=== PATIENT | male | born 1960 | race Caucasian/White ===

== ENCOUNTER 2020-04-15 08:00 | Outpatient (CLI) | payer BC | END 2020-04-15 23:59 | disposition home or self-care (01) | LOC: LAB.WCP 08:00 | PROVIDERS: ATTEND Radiology Therapeutic Radiology | DX: C61 Malignant neoplasm of prostate (principal) | CPT/HCPCS: 36415; 84153 ==

== ENCOUNTER 2020-05-18 07:00 | Outpatient (CLI) | payer BC ==
[2020-05-18 12:30] LABS: C. PNEUMONIAE- RESP PCR PANEL NOT DETECTED
== END 2020-05-18 23:59 | disposition home or self-care (01) ==
LOC: COV 07:00
PROVIDERS: ATTEND Family Medicine
DX: U07.1 COVID-19 (principal)
CPT/HCPCS: 0202U

== ENCOUNTER 2020-12-09 08:11 | Outpatient (CLI) | payer BC ==
[2020-12-09 08:55] VITALS: BP 146/88
--- NOTE | 2020-12-09 08:55 | SLEEP CARE CONSULTATION ---
Information from patient questionnaire entered by Josephine Isaac. I have reviewed and concur with the information entered by Josephine Isaac. This document represents the service I personally performed and the decisions made by me, Kalie Foster ARNP. History of Present Illness Service Date and Time: 12/09/2020 0811 Reason for Visit: New patient Chief Complaint: reports: Insomnia, Unrefreshed sleep, Snoring, Observed pauses in breathing, Fatigue, Frequent awakenings at night, Other (my told me to do something about the snoring or else) Date of Onset: 6 years plus Usual bedtime: 10 pm - 12 am Time it takes to fall asleep: 30-60 minutes Snores at night: Yes Observed to quit breathing while asleep: Yes Sleeps alone due to snoring: Yes Number of times waking at night: 1-3 Reasons for waking at night: reports: Other (unknown reason) Toss, Turn, or Twitch while sleeping: No Recalls having dreams: Yes Usually gets out of bed at: [id number] Feels refreshed in the morning: No Morning headache: No Sleepy or fatigued during the day: Yes Ever fallen asleep while driving: Yes (no accidents; drowsy driving with long trips) Takes day naps: No Dreams during day naps: No Prior sleep studies: No Additional HPI information: I had the pleasure of seeing ROGELIO BUNN today regarding the possibility of him having a sleep disorder. His current complaints are fatigue, frequent night awakenings, insomnia, observed pauses in breathing, snoring and unrefreshed sleep. He states he snores a lot, his is a light sleeper and wakes her up. He has a history of throat cancer and prostate cancer in 2019. His tells him he stops breathing when sleeping. He is not waking up feeling rested and can lay in bed for a couple extra hours and still does not feel rested. He feels he is depressed. He has difficulty remembering people's names, addresses he has been to before and other things he should remember after taking Lupron for his cancer. He has some dry mouth issues due to reduced saliva issues since having throat cancer treatment. He wakes up often with a dry mouth. 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 Patient is and lives in [place]. Have you smoked in the past 12 months: No Alcohol use: Yes Alcohol amount and frequency: 1-3 drinks daily Caffeine use: Yes Caffeine amount and frequency: 1 cup daily Family History Family history of sleep disordered breathing: Yes Family Hx Sleep Apnea: Father: Snoring Allergies and Home Medications Drug allergies reviewed: Yes (NKDA) Home medication list reviewed: Yes Allergy and home medication list: Levothyroxine Liothyronine [place] 3 Turmeric B-50 Milk Thistle Ashwaganda Acetyl L-Carnitine B 3 Vitamin A DGL-Licorice Aloe Vera juice Vitamin D Review of Systems Weight gain over past 5 years: 15-20 Weight loss over past 5 years: 40(during cancer treatment) Cardiovascular: denies: high blood pressure Gastrointestinal: reports: heartburn, abdominal pain Urinary: reports: impotence Neurological: denies: headaches Psychiatric: reports: depression. denies: anxiety, mood disorder, claustrophobia Ear/Nose/Throat: reports: sinus problems, dry mouth/throat, tonsillectomy, wisdom teeth removed Endocrine: reports: thyroid disease, sluggishness Musculoskeletal: reports: joint pain, neck pain, back pain, muscle pain or cramping Immunologic: reports: rash Physical Exam Blood Pressure: 146/88 Cuff size: wrist Heart Rate: 86 O2 Saturation: 98 Height: 5 ft 9 in Weight: 204 lb Body Mass Index: 30.1 BMI Classification: Obese Neck circumference: 16.75 (inches) Mouth and throat: narrow oropharynx Soft palate: long Hard palate: normal Uvula visualization: 50% Mallampati Class II Tongue: enlarged in size with teeth arizmendi on lateral edges Tonsils: absent bilaterally Heart: regular rate and rhythm Lungs: clear bilaterally Impression and Plan 1. Suspected Obstructive Sleep Apnea-Hypopnea Syndrome, as suggested by a history of loud and irregular snoring, observed cessation of breath while asleep, frequent awakening during the night, unrefreshed sleep, cognitive impairment, and excessive daytime sleepiness. Narrow oropharynx and obesity are common predisposing factors for obstructive sleep apnea-hypopnea syndrome. I recommend proceeding to polysomnography to confirm the diagnosis and to assess severity. If the patient has significant sleep disordered breathing, a manual CPAP titration study will also be performed to find the optimal treatment pr essure. I informed the patient of what the sleep studies involve and after some discussion, obtained agreement to proceed. The pathophysiology of obstructive sleep apnea-hypopnea syndrome was discussed with the patient and health risks of cardiovascular and cerebrovascular disease if not treated. AAS brochure for obstructive sleep apnea-hypopnea syndrome given and reviewed. Risks of drowsy driving discussed in detail and patient advised to avoid long distance driving and to dust puller at the first sign of drowsiness. Patient agreed to plan. * Schedule polysomnography +- manual CPAP titration study and return in 1-2 weeks after the study to discuss result and initiate therapy. * Avoid long distance driving or driving when feeling sleepy. * Avoid alcohol, sedative and muscle relaxant around bedtime. * Attempt to lose weight. * Review instructions provided by trained office staff on how to prepare for the sleep study. * Return for follow-up after sleep study completed. Counseling Topics: Weight loss health impact Visit Type: In Office Time Spent with Patient (minutes): 34 Provider Statement: I spent 100% of the Face to Face Visit with the patient with greater than 50% spent counseling the patient and coordination of care.
== END 2020-12-09 08:12 | disposition home or self-care (01) ==
LOC: SC 08:11
PROVIDERS: ATTEND Nurse Practitioner Family
DX: G47.10 Hypersomnia, unspecified (principal); R06.83 Snoring; R41.89 Other symptoms and signs involving cognitive functions and awareness; R06.81 Apnea, not elsewhere classified; G47.8 Other sleep disorders; E66.9 Obesity, unspecified; Z68.30 Body mass index [BMI] 30.0-30.9, adult
CPT/HCPCS: 99203; 99212

== ENCOUNTER 2020-12-15 13:59 | Outpatient (CLI) | payer BC | END 2020-12-15 14:00 | disposition home or self-care (01) | LOC: SC 13:59 | PROVIDERS: ATTEND Nurse Practitioner Family | DX: G47.33 Obstructive sleep apnea (adult) (pediatric) (principal); E66.9 Obesity, unspecified; Z68.30 Body mass index [BMI] 30.0-30.9, adult | CPT/HCPCS: 95806 ==

== ENCOUNTER 2021-01-05 08:37 | Outpatient (CLI) | payer BC ==
--- NOTE | 2021-01-05 09:17 | SLEEP CARE CONSULTATION ---
Information from patient questionnaire entered by Lorna Guallpa. I have reviewed and concur with the information entered by Lorna Guallpa. This document represents the service I personally performed and the decisions made by , Kalie Fsoter ARNP. History of Present Illness Service Date and Time: 01/05/2021 0837 Initial [place] Sleepiness Scale score: 12 (in 2020) Current [place] Sleepiness Scale score: 9 Additional HPI information: ROGELIO BUNN returns for follow up and results of the recently performed home sleep study. I explained the pathophysiology behind obstructive sleep apnea. We then spent quite a bit of time discussing different treatment options. For mild obstructive sleep apnea, surgery and oral appliance are alternatives to nasal CPAP therapy but in moderate or severe cases, nasal CPAP is the most effective and reliable treatment. Because apnea is primarily in supine position, then positional management therapy could be effective. Methods discussed such as positioning with pillows, using a T-shirt with tennis balls in the back, and shown commercial products that have a pillow format on back to prevent supine sleep. I reviewed the impact of weight changes on sleep apnea and strongly recommended losing weight. Patient was cautioned about risks of drowsy driving until sleepiness symptoms resolve. Sleep Study - Results Type of Sleep Study: Home sleep study Prior sleep studies: Yes Year and Where: [facility] 12/15/2020 Polysomnography/Home Sleep Study results: Physician Impression: The quality of the study is good. The length of the study is adequate (> 240 minutes). Please also see the tabulated and graphic data. 1. Obstructive Sleep Apnea-Hypopnea (ICD-10 G47.33), moderate, with an AHI of 15.7/hr and deneen SaO2 of 78%. During the study, the patient had 92 apneas (92 obstructive, 0 central, 0 mixed) and 41 hypopneas. The longest episode lasted 81.0 seconds. The respiratory events occurred more frequently during supine sleep (supine AHI was 27.1 and non-supine, 6.59). 2. Hypoxemia (ICD-10 R09.02), moderate, with the lowest oxygen saturation of 78 % and 14.0 minutes with SaO2 under 90%. Baseline oxygen saturation was normal (Average oxygen saturation was 93%). Allergies and Home Medications Home medication list reviewed: Yes (no changes) Review of Systems Review of systems same as previous: Yes (no changes) Physical Exam Heart Rate: 87 O2 Saturation: 97 Height: 5 ft 9 in Weight: 208 lb Body Mass Index: 30.7 BMI Classification: Obese Impression and Plan 1. Obstructive Sleep Apnea-Hypopnea Syndrome, moderate, with lowest oxygen saturation of 78%. Obviously this is the cause of the patients symptoms of unrefreshed sleep, and excessive daytime sleepiness. Positive pressure therapy could benefit his overall health and reduce cardiovascular and cerebrovascular adverse events. After thorough discussion of options: including surgery, oral mandibular appliance with positional therapy or CPAP treatment, patient decided to take information and think about his options before making a decision. He will call us here at the office when he has decided what he is going to do for therapy. In the meantime, I advised him to sleep more on his side since he is more severe on his back using pillows for positioning and he voiced understanding. Patient supplied a copy of his sleep study as well as information on dentists in the area and DME options in the area. 2. Hypoxemia, moderate, with the lowest oxygen saturation of 78 % and 14.0 minutes with SaO2 under 90%. His baseline oxygen saturation was normal with an average oxygen saturation of 93%. * Patient to notify office of his decision on type of therapy. * Attempt to lose weight. * Avoid alcohol consumption near bedtime. * Avoid supine sleep. * The patient is again cautioned about driving until sleepiness completely resolves. * Return determined by type of HARISH therapy selected. Counseling Topics: Weight loss health impact Visit Type: In Office Time Spent with Patient (minutes): 27 Provider Statement: I spent 100% of the Face to Face Visit with the patient with greater than 50% spent counseling the patient and coordination of care.
== END 2021-01-05 08:38 | disposition home or self-care (01) ==
LOC: SC 08:37
PROVIDERS: ATTEND Nurse Practitioner Family
DX: G47.33 Obstructive sleep apnea (adult) (pediatric) (principal); E66.9 Obesity, unspecified; Z68.30 Body mass index [BMI] 30.0-30.9, adult
CPT/HCPCS: 99212; 99213

== ENCOUNTER 2021-03-09 08:07 | Outpatient (CLI) | payer BC ==
[2021-03-09] MEDS ORDERED: IOPAMIDOL-300 50 ML VIAL ONE (08:34)
[2021-03-09] MEDS ORDERED: IOVERSOL 320 50 ML VIAL ONE (08:34)
[2021-03-09 08:52] LABS: BASOPHILS % (AUTO) 0.5 %; EOSINOPHILS # (AUTO) 0.3 10^3/uL (0.0-0.7); EOSINOPHILS % (AUTO) 5.8 %; HGB - HEMOGLOBIN 13.8 g/dL (14.0-18.0); LYMPHOCYTES # (AUTO) 1.5 10^3/uL (1.5-3.5); LYMPHOCYTES % (AUTO) 26.4 %; MEAN CORPUSCULAR HEMOGLOBIN 32.9 pg (27.0-31.0); MEAN CORPUSCULAR HGB CONC 33.7 g/dL (32.0-36.0); MEAN CORPUSCULAR VOLUME 97.9 fL (80.0-94.0); MEAN PLATELET VOLUME 8.9 fL (7.4-11.4); MONOCYTES # (AUTO) 0.5 10^3/uL (0.0-1.0); MONOCYTES % (AUTO) 9.1 %; NEUTROPHILS # (AUTO) 3.2 10^3/uL (1.5-6.6); PLT - PLATELET COUNT 172 10^3/uL (130-450); RED BLOOD COUNT 4.19 10^6/uL (4.70-6.10); RED CELL DISTRIBUTION WIDTH 12.7 % (12.0-15.0); WHITE BLOOD COUNT 5.5 x10^3/uL (4.8-10.8)
[2021-03-09 09:00] LABS: CALCIUM 9.7 mg/dL (8.5-10.3); CREATININE 1.1 mg/dL (0.6-1.2); POTASSIUM 4.1 mmol/L (3.5-5.0)
[2021-03-09] MEDS ORDERED: IOPAMIDOL-300 50 ML VIAL IVP ONE (10:03)
[2021-03-09] MEDS ORDERED: IOVERSOL 320 50 ML VIAL PO ONE (10:04)
--- NOTE | 2021-03-09 13:59 | CT Report ---
PROCEDURE: Abdomen/Pelvis W INDICATIONS: ABD PAIN CONTRAST: IV CONTRAST: Isovue 300 ml: 100 PO CONTRAST: Optiray 320 ml50 TECHNIQUE: After the administration of IV and rectal contrast, 5 mm thick sections acquired from the diaphragms to the symphysis. 5 mm thick coronal and sagittal reformats were acquired. For radiation dose reduc tion, the following was used: automated exposure control, adjustment of mA and/or kV according to pa tient size. COMPARISON: None. FINDINGS: Image quality: Excellent. ABDOMEN: Lung bases: Lung bases are clear. Heart size is normal. Solid organs: Liver and spleen are normal in size and enhancement. Gallbladder is unremarkable. Bi liary system is non dilated. Pancreas enhances normally. No adrenal nodules. Kidneys demonstrate n ormal size and enhancement, without hydronephrosis. Peritoneum and bowel: A rectal tube has been filled in a retrograde manner with contrast. The colon has normal caliber. Scattered diverticuli are present. There are no Bowel loops demonstrate normal wa ll thickness and caliber. No free fluid or air. Nodes and vessels: No retroperitoneal or mesenteric adenopathy by size criteria. Aorta and inferior vena cava are normal in size. Miscellaneous: No ventral hernias. PELVIS: Genitourinary: Bladder wall thickness is normal. Miscellaneous: Fat-containing inguinal hernias bilaterally. No inguinal adenopathy. Bones: No suspicious bony lesions. No vertebral body compression fractures. A central posterior dis c protrusion at L4-L5 contributes to canal stenosis. IMPRESSION: 1. Mild scattered colonic diverticulosis. No colonic wall thickening or obstructing or constricting l esions. Otherwise unremarkable bowel. 2. No evidence of acute abdominal process. 3. Bilateral fat-containing inguinal hernias. 4. Incidental note made of central posterior disc protrusion at L4-L5, contributing to canal stenosis . Reviewed by: Sadiq Chen MD on 03/09/2021 1:58 PM PDT Approved by: Sadiq Chen MD on 03/09/2021 1:58 PM PDT Station ID: [id number]
== END 2021-03-09 08:08 | disposition home or self-care (01) ==
LOC: LAB 08:07
PROVIDERS: ATTEND Surgery
DX: R10.84 Generalized abdominal pain (principal); K66.0 Peritoneal adhesions (postprocedural) (postinfection); C61 Malignant neoplasm of prostate; K57.30 Diverticulosis of large intestine without perforation or abscess without bleeding; K40.20 Bilateral inguinal hernia, without obstruction or gangrene, not specified as recurrent
CPT/HCPCS: 36415; 74177; 80048; 85025; Q9967

== ENCOUNTER 2021-04-04 16:33 | Outpatient (CLI) | payer BC | END 2021-04-04 16:34 | disposition home or self-care (01) | LOC: COV 16:33 | PROVIDERS: ATTEND Surgery | DX: Z01.812 Encounter for preprocedural laboratory examination (principal); K56.50 Intestinal adhesions [bands], unspecified as to partial versus complete obstruction; Z20.822 Contact with and (suspected) exposure to COVID-19 ==

== ENCOUNTER 2021-04-07 06:53 | Day surgery (SDC) | payer BC ==
[2021-04-07] MEDS ORDERED: CEFAZOLIN SODIUM IN 0.9 % NACL 2 GM/100 ML BAG IV ONE (08:10)
[2021-04-07] MEDS ORDERED: LACTATED RINGERS 1,000 ML IV ONE (08:25)
--- NOTE | 2021-04-07 08:28 | ANESTHESIA ---
Pre-Anesthesia VS, & Labs - Diagnosis recurrent bowel obstructions and adhesions - Procedure diagnostic laparoscopy Vital Signs: Temp Pulse Resp BP Pulse Ox 36.4 C L 85 18 130/90 H 99 04/07/21 08:05 04/07/21 08:05 04/07/21 08:05 04/07/21 08:05 04/07/21 08:05 Height: 5 ft 9 in Weight (kg): 92.5 kg Body Mass Index: 30.1 BMI Classification: Obese - NPO >8 hours - Lab Results Lab results reviewed: Yes Home Medications and Allergies Home Medications: Ambulatory Orders Levothyroxine [Synthroid] 112 mcg PO DAILY 03/29/21 Liothyronine [Cytomel] 25 mcg PO DAILY 03/29/21 Levothyroxine [Synthroid] 112 mcg PO DAILY 03/29/21 Liothyronine [Cytomel] 25 mcg PO DAILY 03/29/21 Allergies/Adverse Reactions: Allergies Allergy/AdvReac Type Severity Reaction Status Date / Time No Known Drug Allergies Allergy Verified 04/07/21 08:18 Anes History & Medical History - Anesthetic History Anesthesia Complications: reports: No previous complications Family history of Anesthesia Complications: Denies Family history of Malignant Hyperthermia: Denies - Medical History Cardiovascular: reports: None Pulmonary: reports: Sleep apnea Gastrointestinal: reports: Other Urinary: reports: Other Musculoskeletal: reports: Osteoarthritis 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) Psychosocial: reports: Cannabis (3/week) - Surgical History Eyes Ears Nose Throat (EENT): reports: Tonsil/Adenoidectomy Exam General: Alert, Oriented x3, Cooperative Dental: WNL Mouth Opening: Greater than 4 Fingerbreadths Neck Mobility: Normal Mallampati classification: I Thyromental Distance: 4-6 cm Respiratory: Lungs clear, Normal breath sounds, No respiratory distress Cardiovascular: Regular rate Mental/Cognitive Status: Alert/Oriented X3, Normal for patient Cognitive Status: Within normal limits Plan Anesthesia Type: General Consent for Procedure(s) Verified and Reviewed: Yes Code Status: Attempt Resuscitation ASA classification: 2-Mild systemic disease Is this case an emergency?: No
[2021-04-07] MEDS ORDERED: NALOXONE 0.4 MG/ML VIAL IVP PRN (08:43)
[2021-04-07] MEDS ORDERED: ONDANSETRON 4 MG/2 ML VIAL IVP PRN ×2 (08:43→11:07)
[2021-04-07] MEDS ORDERED: HYDROmorphone 0.5 MG/0.5 ML SYRINGE IVP PRN ×2 (08:43→11:07)
[2021-04-07] MEDS ORDERED: METOCLOPRAMIDE 10 MG/2 ML VIAL IVP PRN (08:43)
[2021-04-07] MEDS ORDERED: ATROPINE ABBOJECT 1 MG/10 ML SYRINGE IVP PRN (08:43)
[2021-04-07] MEDS ORDERED: ePHEDrine 50 MG/ML VIAL IVP PRN (08:43)
[2021-04-07] MEDS ORDERED: MORPHINE 2 MG/ML CARPUJECT IVP PRN (08:43)
[2021-04-07] MEDS ORDERED: fentaNYL 100 MCG/2 ML VIAL IVP PRN (08:43)
[2021-04-07] MEDS ORDERED: BUPIVACAINE 0.5% PF 10 ML VIAL ONE (08:48)
[2021-04-07] MEDS ORDERED: LIDOCAINE 2%-EPI 1:100000 20 ML MDV ONE (08:48)
[2021-04-07] MEDS ORDERED: MIDAZOLAM 2 MG/2 ML VIAL ONE (08:54)
[2021-04-07] MEDS ORDERED: LIDOCAINE-MPF 2% 5 ML VIAL ONE (08:55)
[2021-04-07] MEDS ORDERED: PROPOFOL 200 MG/20 ML VIAL IVP ONE (08:55)
[2021-04-07] MEDS ORDERED: LIDOCAINE 2%-EPI 1:100000 20 ML MDV SUBQ ONE (08:55)
[2021-04-07] MEDS ORDERED: ROCURONIUM 50 MG/5 ML VIAL ONE ×2 (08:56→10:11)
[2021-04-07] MEDS ORDERED: BUPIVACAINE 0.5% PF 10 ML VIAL IM ONE (08:56)
[2021-04-07] MEDS ORDERED: LACTATED RINGERS 1,000 ML IV SCH (09:00)
[2021-04-07] MEDS ORDERED: MAGNESIUM SULFATE 1 GM/2 ML VIAL ONE (09:27)
[2021-04-07] MEDS ORDERED: ACETAMINOPHEN 1,000 MG/100 ML 100 ML IV ONE (09:32)
[2021-04-07] MEDS ORDERED: HYDROmorphone 1 MG/ML CARPUJECT ONE ×2 (09:56→12:00)
[2021-04-07] MEDS ORDERED: ROPIVACAINE 0.5% PF 20 ML AMPULE ONE (10:21)
[2021-04-07] MEDS ORDERED: SODIUM CHLORIDE 0.9% 10 ML VIAL IVP ONE (10:21)
[2021-04-07] MEDS ORDERED: METHYLENE BLUE 0.5% 50 MG/10 ML AMPULE IR ONE (10:36)
[2021-04-07] MEDS ORDERED: METHYLENE BLUE 0.5% 50 MG/10 ML AMPULE ONE (10:37)
[2021-04-07] MEDS ORDERED: LORazepam 2 MG/ML VIAL IVP PRN (11:07)
[2021-04-07] MEDS ORDERED: SODIUM CHLORIDE FLUSH 0.9% 10 ML SYRINGE IVP PRN (11:07)
--- NOTE | 2021-04-07 11:07 | OPERATIVE REPORT ---
Operative Report - General Procedure Date: 04/07/21 Planned Procedure: Diagnostic laparoscopy with indicated procedures Pre-Op Diagnosis: Recurrent intermittent bowel obstruction Procedure Performed: Diagnostic laparoscopy with lysis of adhesions and repair of urinary bladder Post Op Diagnosis: Recurrent intermittent bowel obstruction - Procedure Note Primary Surgeon: Willy Anesthesia Provider: MIGUEL ÁNGEL Cooper Pathology: None IV Fluids (mL): 1,200 Estimated Blood Loss (mL): 15 Findings: Dense adhesions between the sigmoid colon and the incision line on the dome of the bladder.Scattered other pelvic adhesions Complications: None apparent - Other Other Information/Narrative: After obtaining informed consent, the patient is brought to the operating room and placed in the supine position on the operating table. Following successful induction of general endotracheal anesthesia, appropriate padding of all bony prominences, and placement appropriate monitors, the abdomen was prepped and draped in the standard surgical fashion. A timeout was held per scope protocol. All elements of the surgical safety checklist were followed before, during, and after the procedure. We began the procedure by infiltrating a mixture of local anesthetics in the midline superior to the umbilicus. An incision was created here and carried down through the skin and subcutaneous tissue to reveal the fascia below 2-0 Vicryl retention sutures were placed on either side of midline and the abdomen was entered under direct vision. A 12 mm blunt trocar was placed in the abdominal cavity and the balloon insufflated. The abdomen was insufflated to 15 mmHg pressure. A second 5 mm trocar was placed in the right upper quadrant and a third in the right lower quadrant. We began with a survey of the abdominal cavity. There are very few adhesions to or between structures within the abdominal cavity except within the pelvis. The liver and gallbladder both appeared completely normal the spleen was smooth and normal in appearance there was no evidence or gross evidence of adenopathy. In the pelvic region in the left lower quadrant, we noted adhesions of the colon to the abdominal wall begin crescencio at about the junction of the sigmoid and descending colon. These adhesions were sharply lysed allowing the descending colon to fall down into the pelvis and in anatomic position. As we continued evaluation medially we noted significant adhesions of the dome of the urinary bladder to the sigmoid colon.These were taken down sharply and under direct vision to a point where the sigmoid colon musculature was densely attached to the incision line in the bladder.EndoShears were used to try to divide this without entering either structure.The serosa of the colon was compromised but the colon never entered.The mucosa and musculature remained intact.In this adhesion, we created a 1 cm opening in the dome of the bladder and the region of the existing repair.I elected at this point to perform a Pfannenstiel incision so that I would have better access to repair this defect as well as to place Seprafilm to prevent recurrent adhesions. This also gave me the opportunity to examine the sigmoid colon under direct vision.The small wound protector device was placed. The defect in the bladder was closed in 3 layers with chromic suture followed by 2 layers of Vicryl suture.A Forbes catheter was placed in the urinary bladder and filled with methylene blue. The bladder was pair was checked for leaks and there was no leaking identified. It was then allowed to drain.The sigmoid colon was then examined carefully under direct vision. It was fully intact. No sutures were required for buttressing.Seprafilm was then placed carefully over the repair and wrapped onto the dome of the bladder to try to prevent recurrent adhesions.The abdomen was checked for hemostasis and irrigated free of all fluid and particulate matter.The peritoneum was closed with running locking 3-0 Vicryl. The fascia was closed with interrupted Vicryl suture. Monocryl stitches were placed in the skin in a subcuticular fashion at the Pfannenstiel incision as well as all of the port sites. Dermabond was applied to the skin. All sponge, needle, and instrument counts were correct at the conclusion the case. The patient was allowed awaken anesthesia without difficulty and taken to the postanesthesia care unit in good condition.
[2021-04-07] MEDS ORDERED: LACTATED RINGERS 650 ML IV ONE (11:29)
[2021-04-07] MEDS: LEVOTHYROXINE 112 MCG TABLET PO SCH (13:25)
[2021-04-07] MEDS: LIOTHYRONINE 25 MCG TABLET PO SCH (13:26)
[2021-04-07] MEDS: ACETAMINOPHEN 325 MG TABLET PO SCH ×3 (13:29→22:04)
[2021-04-07] MEDS: oxyCODONE 5 MG TABLET PO PRN ×3 (13:30→22:04)
--- NOTE | 2021-04-07 13:45 | PHARMACY PROGRESS NOTE ---
- Best Possible Medication History Admit Date and Time: Processed by: Nursing Medication History completed: Yes Patient Interview: Completed (MED REC COMPLETED BY NURSING) As the person ultimately responsible for medication therapy, providers are able to order a medication from an existing home medication list in [facility] via the "Reconcile Routine" prior to Confirmation of that medication by life support technician. Such practice is discouraged except when the physician, in their clinical judgment, deems that a medical need exists for a medication without regard to previous use.
[2021-04-07] MEDS: ceFAZolin 2 GM in SODIUM CHLORIDE 0.9% 100ML 100 ML IV SCH ×2 (14:16→22:06)
[2021-04-07] MEDS: KETOROLAC 30 MG/ML VIAL IVP SCH ×2 (16:31→22:04)
[2021-04-07] MEDS: SODIUM CHLORIDE FLUSH 0.9% 10 ML SYRINGE IVP SCH (16:32)
--- NOTE | 2021-04-07 18:00 | ANESTHESIA POST OP EVALUATION ---
Anesthesia Post Eval - Post Anesthesia Eval Vitals: Last Vital Signs Temp 36.4 C L 04/07/21 15:17 Pulse 71 04/07/21 15:17 Resp 18 04/07/21 15:17 BP 113/67 04/07/21 15:17 Pulse Ox 97 04/07/21 15:17 CV Function Including HR & BP: Stable Pain Control: Satisfactory Nausea & Vomiting: Negative Mental Status: Baseline Respiratory Status: Airway Patent Hydration Status: Satisfactory Anesthesia Complications: None
[2021-04-08] MEDS: oxyCODONE 5 MG TABLET PO PRN ×2 (02:30→06:41)
[2021-04-08] MEDS: ACETAMINOPHEN 325 MG TABLET PO SCH ×3 (02:30→10:15)
[2021-04-08] MEDS: SODIUM CHLORIDE FLUSH 0.9% 10 ML SYRINGE IVP SCH ×2 (02:31→06:43)
[2021-04-08] MEDS: KETOROLAC 30 MG/ML VIAL IVP SCH ×2 (06:41→10:14)
[2021-04-08] MEDS: LIOTHYRONINE 25 MCG TABLET PO SCH (06:42)
[2021-04-08] MEDS: LEVOTHYROXINE 112 MCG TABLET PO SCH (06:43)
[2021-04-08 07:00] VITALS: BP 94/59
[2021-04-08] MEDS ORDERED: PANTOPRAZOLE 40 MG TABLET PO SCH (07:00)
[2021-04-08 07:06] LABS: CALCIUM 8.7 mg/dL (8.5-10.3); CREATININE 1.1 mg/dL (0.6-1.2); POTASSIUM 3.6 mmol/L (3.5-5.0)
[2021-04-08 07:17] LABS: BASOPHILS % (AUTO) 0.1 %; EOSINOPHILS # (AUTO) 0.1 10^3/uL (0.0-0.7); HCT - HEMATOCRIT 36.5 % (42.0-52.0); LYMPHOCYTES % (AUTO) 12.8 %; MEAN CORPUSCULAR HEMOGLOBIN 32.5 pg (27.0-31.0); MEAN CORPUSCULAR HGB CONC 32.9 g/dL (32.0-36.0); MEAN CORPUSCULAR VOLUME 98.9 fL (80.0-94.0); MEAN PLATELET VOLUME 9.7 fL (7.4-11.4); MONOCYTES # (AUTO) 0.7 10^3/uL (0.0-1.0); MONOCYTES % (AUTO) 9.1 %; NEUTROPHILS # (AUTO) 5.9 10^3/uL (1.5-6.6); NEUTROPHILS % (AUTO) 76.9 %; PLT - PLATELET COUNT 160 10^3/uL (130-450); RED BLOOD COUNT 3.69 10^6/uL (4.70-6.10); RED CELL DISTRIBUTION WIDTH 12.8 % (12.0-15.0); WHITE BLOOD COUNT 7.7 x10^3/uL (4.8-10.8)
[2021-04-08] MEDS ORDERED: polyethylene glycoL 3350 17 GM PACKET PO SCH (09:00)
[2021-04-08] MEDS ORDERED: ENOXAPARIN 40 MG/0.4 ML SYRINGE SUBQ SCH (09:00)
[2021-04-08] MEDS ORDERED: MINERAL OIL 473 ML BOTTLE PO ONE (10:00)
--- NOTE | 2021-04-08 10:21 | Discharge Plan ---
Discharge Plan Problem Reviewed?: Yes Disposition: Home, Self Care Prescriptions: oxyCODONE [Roxicodone] 5 mg PO Q4HR PRN #30 tablet PRN Reason: Pain Ciprofloxacin HCl [Cipro] 250 mg PO BID #14 tablet methocarbamoL [Methocarbamol] 500 mg PO TID PRN #20 tablet PRN Reason: Spasms Diet: Regular Activity Restrictions: 15 pound lift limit Shower Restrictions: No Driving Restrictions: Yes (Not while using narcotics) Additional Instructions or Follow Up instructions: Cystogram has been ordered for Apr 17. Follow up in the office afterward for wallace catheter removal No Smoking: If you smoke, Please STOP! Call for help. Follow-up with: NEGIN HOLLIDAY ARNP [Primary Care Provider] - Adán Aguilera MD [Provider Admit Priv/Credential] -
[2021-04-08] MEDS ORDERED: ACETAMINOPHEN 325 MG TABLET PO PRN (10:24)
[2021-04-08] MEDS ORDERED: ONDANSETRON 4 MG/2 ML VIAL IVP PRN (10:24)
[2021-04-08] MEDS ORDERED: IBUPROFEN 600 MG TABLET PO PRN (10:24)
[2021-04-08] MEDS ORDERED: oxyCODONE 5 MG TABLET PO PRN (10:24)
--- NOTE | 2021-04-08 10:32 | PROVIDER PROGRESS NOTE ---
Subjective - General Procedure Date: 04/07/21 Post Op Days: 1 Procedure Performed: Diagnostic laparoscopy with lysis of adhesions and repair of urinary bladde - Review of Systems Drain Type: Forbes Drain Output Description: Clear urine General: positive: No symptoms HEENT: positive: No symptoms Pulmonary: positive: No symptoms Cardiovascular: positive: No symptoms Gastrointestinal: positive: No symptoms Genitourinary: positive: No symptoms Musculoskeletal: positive: No symptoms Skin: positive: No symptoms Psychiatric: positive: No symptoms All Other Systems: positive: Reviewed and negative - Other Other Information/Narrative: Edis reports he is feeling pretty well today. We went back over his surgical procedure and what we found. He says his pain is well controlled. He has been passing gas this morning and tolerated his breakfast. He is ready for discharge. Objective - Patient Data Reviewed Vital Signs: Yes Vital Signs: Vital Signs x48h Temp Pulse Resp BP Pulse Ox 04/08/21 06:55 36.6 C 74 18 94/59 L 97 Weight: Weight 04/06/21 04/07/21 04/08/21 23:59 23:59 23:59 Weight (kg) 92.5 kg Intake & Output: Intake and Output Totals x24h 04/06/21 04/07/21 04/08/21 23:59 23:59 23:59 Intake Total 1590 180 Output Total 1500 950 Balance 90 -770 - Lab Results Lab Results: 04/08/21 06:22 04/08/21 06:22 Other Lab Results: Lab Results x24hrs 04/08/21 04/08/21 Range/Units 06:22 06:22 WBC 7.7 (4.8-10.8) x10^3/uL RBC 3.69 L (4.70-6.10) 10^6/uL Hgb 12.0 L (14.0-18.0) g/dL Hct 36.5 L (42.0-52.0) % MCV 98.9 H (80.0-94.0) fL MCH 32.5 H (27.0-31.0) pg MCHC 32.9 (32.0-36.0) g/dL RDW 12.8 (12.0-15.0) % Plt Count 160 (130-450) 10^3/uL MPV 9.7 (7.4-11.4) fL Neut # (Auto) 5.9 (1.5-6.6) 10^3/uL Lymph # (Auto) 1.0 L (1.5-3.5) 10^3/uL Crosby # (Auto) 0.7 (0.0-1.0) 10^3/uL Eos # (Auto) 0.1 (0.0-0.7) 10^3/uL Baso # (Auto) 0.0 (0.0-0.1) 10^3/uL Absolute Nucleated RBC 0.00 x10^3/uL Nucleated RBC % 0.0 /100WBC Sodium 137 (135-145) mmol/L Potassium 3.6 (3.5-5.0) mmol/L Chloride 104 (101-111) mmol/L Carbon Dioxide 25 (21-32) mmol/L Anion Gap 8.0 (6-13) BUN 15 (6-20) mg/dL Creatinine 1.1 (0.6-1.2) mg/dL Estimated GFR (MDRD) 69 L (>89) Glucose 141 H (70-100) mg/dL Calcium 8.7 (8.5-10.3) mg/dL - Current Medications Current Medications: Current Medications Generic Name Dose Route Start Last Admin Trade Name Bookerq PRN Reason Stop Dose Admin Acetaminophen 650 mg 04/07/21 13:00 04/08/21 10:15 Acetaminophen 325 Mg Tablet PO 650 mg Q4HR JAZMINE Administration Enoxaparin Sodium 40 mg 04/08/21 09:00 04/08/21 06:42 Enoxaparin 40 Mg/0.4 Ml Syringe SUBQ 40 mg DAILY JAZMINE Administration Ketorolac Tromethamine 15 mg 04/07/21 12:00 04/08/21 10:14 Ketorolac 30 Mg/Ml Vial IVP 04/12/21 11:59 15 mg Q6H JAZMINE Administration Levothyroxine Sodium 112 mcg 04/07/21 12:00 04/08/21 06:43 Levothyroxine 112 Mcg Tablet PO 112 mcg DAILY JAZMINE Administration Liothyronine Sodium 25 mcg 04/07/21 12:00 04/08/21 06:42 Liothyronine 25 Mcg Tablet PO 25 mcg DAILY JAZMINE Administration Oxycodone HCl 5 mg 04/07/21 11:07 04/08/21 06:41 Oxycodone 5 Mg Tablet PO 5 mg Q4HR PRN Administration PAIN Pantoprazole Sodium 40 mg 04/08/21 07:00 04/08/21 06:42 Pantoprazole 40 Mg Tablet PO 40 mg QDAC JAZMINE Administration Polyethylene Glycol 17 gm 04/08/21 09:00 04/08/21 10:08 Polyethylene Glycol 3350 17 Gm Packet PO Not Given DAILY JAZMINE Sodium Chloride 10 ml 04/07/21 17:00 04/08/21 06:43 Sodium Chloride Flush 0.9% 10 Ml Syringe IVP 10 ml 0100,0900,1700 JAZMINE Administration Sodium Chloride 10 ml 04/07/21 11:07 04/08/21 10:15 Sodium Chloride Flush 0.9% 10 Ml Syringe IVP 10 ml PRN PRN Administration NEEDED PER PROVIDER ORDERS - Physical Exam Wound/Incisions: positive: Healing well General Appearance: positive: No acute distress Eyes Bilateral: positive: Normal inspection Respiratory: positive: Chest non-tender, No respiratory distress, Breath sounds nml Cardiovascular: positive: Regular rate & rhythm Abdomen: positive: Tenderness (Appropriately tender to palpation with moderate bruising. Active bowel sounds.) Skin: positive: Color nml Neurologic/Psychiatric: positive: Oriented x3 ABX Reporting Has patient been on IV antibiotics over the past 48 hours?: Yes Impression/Plan - Problem List Problem List: He is ready for discharge. He will be sent home with his wifeWho is very capable. We will supply him with a leg bag and his Forbes will stay in place until April 17 when a cystogram has been ordered. We will see him in clinic after the cystogram for Forbes removal.Discharge medications have been transmitted to [facility].
== END 2021-04-08 11:15 | disposition home or self-care (01) ==
LOC: SDS 06:53 → MS2 11:07 → SDS 04-08 11:15
PROVIDERS: ATTEND Surgery
PROC: 0DNM4ZZ Release Descending Colon, Percutaneous Endoscopic Approach (ICD-10-PCS; 2021-04-07)
PROC: 0DNN4ZZ Release Sigmoid Colon, Percutaneous Endoscopic Approach (ICD-10-PCS; 2021-04-07)
PROC: 0TNB4ZZ Release Bladder, Percutaneous Endoscopic Approach (ICD-10-PCS; principal; 2021-04-07 09:15)
DX: K56.50 Intestinal adhesions [bands], unspecified as to partial versus complete obstruction (principal); E66.9 Obesity, unspecified; Z68.30 Body mass index [BMI] 30.0-30.9, adult; G47.30 Sleep apnea, unspecified; E06.3 Autoimmune thyroiditis
CPT/HCPCS: 36415; 49329; 80048; 85025; A9270; J0131; J0690; J1170; J7120

== ENCOUNTER 2021-04-17 10:28 | Outpatient (CLI) | payer BC ==
[2021-04-17] MEDS ORDERED: IOTHALAMATE MEGLUMINE 250 ML VIAL UR ONE (12:03)
--- NOTE | 2021-04-17 13:16 | XRAY Report ---
PROCEDURE: Cystography INDICATIONS: HX OF BOWEL OBSTRUCTION CONTRAST: CONTRAST: cystoray FLUORO TIME: FLUORO TIME: 34 sec and NUMBER IMAGES: 10 COMPARISON: CT abdomen pelvis 03/09/2021. FINDINGS: KUB: A Forbes catheter is present on a preprocedure image of the pelvis. Bony structures are unremar kable. Bladder: The filled bladder is slightly lobulated in contour consistent with sequelae of prior parti al cystectomy. Early images demonstrate no bladder wall trabeculations. No vesicoureteral reflux or evidence of contrast extravasation. No suspicious filling defects. IMPRESSION: 1. No evidence of contrast extravasation to suggest a bladder perforation. Reviewed by: Aditya Carrera MD on 04/17/2021 1:14 PM PDT Approved by: Aditya Carrera MD on 04/17/2021 1:14 PM PDT Station ID: [id number]
== END 2021-04-17 10:29 | disposition home or self-care (01) ==
LOC: DI 10:28
PROVIDERS: ATTEND Surgery
DX: Z87.19 Personal history of other diseases of the digestive system (principal)